=== PATIENT | female | born 1955 | race Caucasian/White ===

== ENCOUNTER 2024-10-03 11:11 | Outpatient (AMB) | payer MEDICARE, SELFPAY ==
[2024-10-03 11:23] VITALS: BP 193/86; PULSE 86; O2SAT 96; BMI 40.6
--- NOTE | 2024-10-03 11:23 | A.OFFVIS_ITS ---
Vital Signs 10/03/24 11:23 Height 5 ft 8 in Weight 267 lb BMI 40.6 BP 193/86 H Blood Pressure Location Lt brachial Position Sitting Pulse 86 Pulse Source Pulse Oximeter Pulse Oximetry (%) 96 Oxygen Delivery Method Room Air Intake Visit Reasons: Back pain Intake Note: Pt ran out of her BP medication, will stop by pharmacy today to corn picker Boring Machine Feeder Required: No Allergies No Known Allergies Allergy (Verified 10/03/24 11:24) Medication List - Last Reconciled 10/03/24 by Alannah Amaro, ENTERPRISE APPLICATIONS MANAGER lisinopril 20 mg PO DAILY HPI Comments Details: The patient is a 69-year-old female presenting with chronic lower back pain. The chronic pain, interlinked with her diagnosis of spinal stenosis, has been complicated by a physical fall in June, leading to a sustained deterioration . 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 Over the years, the patient has had a decrease in functional capacity due to persistent pain and now reports avoidance of medications. Previous exacerbation of symptoms was noted following a June incident with her dog, which caused her to land underneath a vehicle, significantly worsening her back condition. While she has experienced bowel control issues suggesting possible Cauda Equina Syndrome, she has not pursued surgical interventions due to discouraging outcomes shared by others. She is not interested in surgical intervention at this time. The patient has undergone bilateral knee replacements in the past, indicating a surgical history without immediate complications once recovered. - Onset and Timing: Chronic lower back pain for years, escalated since fall - Quality and Character: Constant pressure in the lower back, sometimes intense. - Primary Location: Lower back. - Areas of Radiation: Legs - Exacerbating Factors: Physical activity (yard work, walking) and prolonged standing or sitting. - Relieving Factors: Rest and cessation of activity. - Interference: Significant limitations on daily activities such as yard work, vacuuming, and driving. - Affect: Significant emotional distress, frustration due to limitations on an active lifestyle. - Analgesia: Prefers to avoid medication and manage pain without pharmaceuticals. - Adverse Effects: Not applicable, as the patient is not taking pain medications currently. - Activities of Daily Living: Severe interference; difficulty with vacuuming, yard work, altering linens, and mobility. - Aberrant Drug-Related Behaviors: None reported, patient prefers non- pharmacologic management. [facility] Medical History (Updated 10/03/24 @ 14:17 by Destiny Lin APRN, STEWARD/STEWARDESS NIGHT) Hypertension Surgical History (Updated 10/03/24 @ 14:17 by Destiny Lin APRN, STEWARD/STEWARDESS NIGHT) History of knee replacement Review of Systems Const All systems reviewed & are unremarkable except as noted in HPI and below Physical Exam Vital Signs: Last Vital Signs Pulse 86 10/03/24 11:23 BP 193/86 H 10/03/24 11:23 Pulse Ox 96 10/03/24 11:23 Oxygen Delivery Method Room Air 10/03/24 11:23 BMI result Body Mass Index 40.6 General: awake, alert, oriented. Answers questions appropriately. Fully engaged in examination. Skin: warm, dry, intact HEENT: Normocephalic. Hearing intact. Cardiac: External chest normal in appearance. Respiratory: No cough, audible wheezing or stridor. Abdomen: without gross distension. MS: No obvious swelling or deformities. Maintains slight forward flexed position Able to transition from sit to stand unassisted. Ambulates with bilaterally normal heel strike and toe off SLR negative bilaterally Tender to palpation midline lumbar vertebrae and lumbar paraspinal muscles Nontender over bilateral PSIS Neurological: Oriented to person, place, time and situation. Thought process intact. No gait abnormalities appreciated. Psychiatric: Appropriate mood and affect. Good judgment and insight. Results Reviewed Results Reviewed: 09/10/24 EXAM: MR LUMBAR SPINE WITHOUT CONTRAST FINDINGS: The conus is in its normal position at the level of L1. There are Modic type II reactive degenerative endplate changes present at L5-S1. Throughout the lumbar spine, diffuse degenerative disc changes are present with varying degrees of disc desiccation. T11-12: Mild disc bulging is present. Mild facet osteoarthritic changes are present. The central canal and neural foramen are patent. T12-L1: The central canal and neural foramen are patent. L1-L2: Mild disc bulging is present. Mild facet osteoarthritic changes are present. The central canal and neural foramen are patent. L2-3: Broad-based disc bulging is present. Moderate facet osteoarthritic changes are present. There is hypertrophy and redundancy of both ligamentum flavum with moderate narrowing of the lateral recesses and moderate central canal stenosis. The neural foramen are patent bilaterally. L3-4: Degenerative spondylolisthesis is present. Marked facet osteoarthritic changes are present. There is hypertrophy and redundancy of both ligamentum flavum with severe bilateral lateral recess stenosis and severe central canal stenosis. The neural foramen are patent bilaterally. L4-5: Broad-based disc bulging is present. Moderate facet osteoarthritic changes are present. There is mild narrowing of the lateral recesses and the central canal. The neural foramen are patent bilaterally. L5-S1: Mild disc bulging is present. All facet osteoarthritic changes are present. The central canal and neural foramen are patent. IMPRESSION: Spondylotic findings as discussed above that are most severe at L3-4 where there is severe canal stenosis. Please see discussion above Assessment & Plan Assessment & Plan (1) Spinal stenosis: Code(s): M48.00 - Spinal stenosis, site unspecified Category: Medical (2) Chronic back pain: Code(s): M54.9 - Dorsalgia, unspecified; G89.29 - Other chronic pain Category: Medical (3) Fecal incontinence: Code(s): R15.9 - Full incontinence of feces Category: Medical (4) Lumbar spondylosis: Code(s): M47.816 - Spondylosis without myelopathy or radiculopathy, lumbar region Category: Medical (5) Degenerative disc disease, lumbar: Code(s): M51.369 - Other intervertebral disc degeneration, lumbar region without mention of lumbar back pain or lower extremity pain Category: Medical Plan Today, we addressed the patient's chronic back pain due to spinal stenosis with the new concern of leg numbness. The patient does not currently take pain medication and expresses reluctance towards surgical intervention, though a referral to neurosurgery is planned for consideration of future consultation. We discussed prescribing a muscle relaxant for occasional use, particularly post- activity to help alleviate discomfort. This temporary step aims to ease pain w ithout altering current functional independence significantly. Given her plans to relocate temporarily to [place], adjusting medication plans to her support system is necessary to maintain her independence and quality of life. During our discussion, I explained the gravity of the spinal stenosis using the patient's MRI results highlighting severe central canal and lateral recess stenosis. I advised on a referral to neurosurgery, stressing that consultation does not commit her to surgery. Options for minimally invasive procedures were outlined, explaining that newer methods could provide symptomatic relief with less risk than traditional surgeries. We also discussed using muscle relaxants to help manage acute pain episodes, assuring her that the prescribed medication is minimally sedating to maintain her independence and safety. I asked the patient to inform me upon returning from [place] so that a referral can be placed for neurosurgical evaluation. Patient is agreeable to neurosurgical evaluation. Recommendations were provided towards lifestyle accommodations, reassuring her continued ability to engage actively within her capacity. - Avoid strenuous activities that worsen the back pain. - Consider a muscle relaxant when the pain is severe - Keep the follow-up with neurosurgery for consultation in mind, especially if symptoms worsen. - Upon return from [place], contact us to proceed with any further referrals or evaluations. - Monitor for symptoms of Cauda Equina Syndrome, such as saddle anesthesia or bowel/bladder changes, and seek immediate care if they occur. - Be conscious of maintaining mobility and activity within comfort levels. - Coordinate support for travel and activities as needed. - supervisor specialty plant prescribed muscular relaxant and continue with blood pressure medication as directed. Patient was informed and verbally consented to the use of an ambient scribe for clinic note documentation during this visit. Medications: New methocarbamol No driving while taking this medication. Do no take with alcohol or other STENCIL CUTTER Depressants 500 mg PO TID PRN 90 tabs 1RF muscle spasm Coding Level of Care Code New Pt Level 4 (42711) Complex EM visit Add On G2211 Diagnoses Spinal stenosis M48.00 Chronic back pain M54.9; G89.29 Fecal incontinence R15.9 Lumbar spondylosis M47.816 Degenerative disc disease, lumbar M51.369
--- OUTSIDE RECORDS SUMMARY | 2024-10-03 13:28 | XMS_ITS | Clinical Summary ---
Author Organization [facility] Address [address] [place] [address] Care Team Providers Care Manager Study Name Role Phone Abhijeet Vale MD Primary Care Provider Allergies Active Allergy Reactions Criticality Noted Date Comments Tyloxapol 09/29/2021 Medications Medication Sig Dispensed Refills Start Date End Date Status atenolol (TENORMIN) tablet 50 mg 0 04/15/2017 Active celecoxib (CELEBREX) 200 MG capsule TAKE ONE CAPSULE BY MOUTH ONCE A DAY WITH FOOD 1 01/18/2017 Active warfarin (COUMADIN) 1 MG tablet Take 5 tabs daily or as directed by physician 90 tablet 0 08/02/2017 Active Additional Information Patient not taking.Reason: Other (treatment completed), Reported on 04/25/2018 methocarbamol (ROBAXIN-750) 750 MG tablet Take 1 tablet po q 8 hrs prn spasms 30 tablet 2 08/16/2017 Active atenolol (TENORMIN) tablet 25 mg 0 12/12/2017 Active oxyCODONE (ROXICODONE) 5 MG immediate release tablet Take 5 mg by mouth every 12 (twelve) hours as needed. for pain 0 10/05/2017 Active traMADol (ULTRAM) 50 MG tablet Take 50 mg by mouth every 8 (eight) hours as needed. for pain 2 10/19/2017 Active gabapentin (NEURONTIN) 100 MG capsule Take 1 capsule (100 mg total) by mouth 3 (three) times a day as needed. 90 capsule 2 02/27/2018 Active warfarin (COUMADIN) 1 MG tablet Take 6 tabs daily at dinner time - Dr Vora's office will contact you to change dose as needed 100 tablet 1 05/23/2018 Active Additional Information Patient not taking.Reason: Other, Reported on 07/07/2018 carisoprodol (SOMA) 250 MG tablet TAKE 1 TABLET BY MOUTH TWICE A DAY NEEDED 0 08/14/2020 Active ibuprofen (ADVIL,MOTRIN) 600 MG tablet TAKE 1 TABLET 4 TIMES DAILY FOR 5 DAYS 0 08/14/2020 Active ondansetron (ZOFRAN-ODT) 4 MG disintegrating tablet DISSOLVE 1 TABLET ON THE TONGUE EVERY 8 HOURS NEEDED FOR NAUSEA/VOMITING 0 08/14/2020 Active oxyCODONE-acetaminop hen (PERCOCET) 5-325 MG per tablet TAKE 1 TABLET EVERY 6 HOURS FOR 3 DAYS NEEDED FOR PAIN 0 08/14/2020 Active DULoxetine (CYMBALTA) DR capsule 20 mg Take 20 mg by mouth daily. 0 08/28/2021 Active amoxicillin (AMOXIL) 500 MG tablet Take 4 tabs 1 hour prior to dental appointment 20 tablet 3 09/29/2021 Active Active Problems Problem Noted Date Diagnosed Date Postoperative follow-up 07/07/2018 Knee stiffness, left 09/13/2017 Status post left knee replacement 09/13/2017 Social History Tobacco Use Types Packs/Day Years Used Date Smoking Tobacco: Never Smokeless Tobacco: Never Sex and Gender Information Value Date Recorded Sex Assigned at Not on file Gender Identity Not on file Sexual Orientation Not on file Job Start Date Occupation Industry Not on file Not on file Not on file Last Filed Vital Signs Vital Sign Reading Time Taken Comments Blood Pressure - - Pulse - - Temperature - - Respiratory Rate - - Oxygen Saturation - - Inhaled Oxygen Concentration - - Weight 120.2 kg (265 lb) 09/29/2021 9:02 AM EDT Height 172.7 cm (5' 8 ) 09/30/2021 9:35 AM EDT Body Mass Index 40.29 09/29/2021 9:02 AM EDT Plan of Treatment Health Maintenance Due Date Last Done Comments Hepatitis C Screening 1955 COVID-19 Vaccine (#1) 1955 Depression Screening 1967 BMI Counseling 1973 Preventative Health Evaluation 1973 DTap / Tdap / Td (1 - Tdap) 1974 Colon Cancer Screening (Colonoscopy) 2000 Breast Cancer Screening (Mammogram) 2005 Shingrix-Zoster Vaccine (1 of 2) 2005 Fall Risk Assessment 2020 Osteoporosis Screening (DEXA Scan) 2020 Pneumococcal Vaccine (1 of 1 - PCV) 2020 Influenza Vaccine (#1) 2024 RSV Adult > 60+ Yrs or Pregn ant (1 - 1-dose 75+ series) 2030 Hepatitis B Vaccines Aged Out No long er eligible based on patient's age to complete this topic RSV Ped < 20 months Aged Out No longe r eligible based on patient's age to complete this topic Care Teams Manager Study Relationship Specialty Start Date End Date Ahbijeet Vale MD [address] [address] PCP - General Polisher Dial 09/30/21
--- OUTSIDE RECORDS SUMMARY | 2024-10-03 13:28 | XMS_ITS | Clinical Summary ---
Author Organization [facility] Address [id number] [place] [id number] Care Team Providers Care Marriage And Family Counselor Name Role Phone Abhijeet Vale MD Primary Care Provider [phone] Surgical History Surgery Date Site/Laterality Comments SHOULDER SURGERY PROCEDURE:SHOULDER SURGERY JOINT REPLACEMENT PROCEDURE:JOINT REPLACEMENT Medical History Medical History Date Comments Hypertension DX:Hypertension Social History Tobacco Use Types Packs/Day Years Used Date Smoking Tobacco: Never Smokeless Tobacco: Never Comments Unknown Sex and Gender Information Value Date Recorded Sex Assigned at Not on file Legal Sex Female 7:44 PM EST Gender Identity Not on file Sexual Orientation Not on file Obstetrics History Last Filed Vital Signs Vital Sign Reading Time Taken Comments Blood Pressure - - Pulse - - Temperature - - Respiratory Rate - - Oxygen Saturation - - Inhaled Oxygen Concentration - - Weight 120 kg (265 lb) 09/29/2021 9:02 AM EDT Height 172.7 cm (5' 8 ) 09/30/2021 9:35 AM EDT Body Mass Index 40.29 09/29/2021 9:02 AM EDT Plan of Treatment Health Maintenance Due Date Last Done Comments Breast Cancer Screening 1955 DTaP,Tdap,and Td Vaccines (1 - Tdap) 1974 Pneumococcal Vaccine: 50+ Ye ars (1 of 1 - PCV) 2005 Zoster Vaccines (1 of 2) 2005 Colorectal Cancer Screening: Colonoscopy 06/12/2022 Depression Screening 06/12/2022 Falls Risk Assessment 06/12/2022 Hepatitis C Screening 06/12/2022 Osteoporosis Screening (Bone Density Screening) 06/12/2022 Social Influencers of Health Screening 06/12/2022 COVID-19 Vaccine ( - 2023-2 5 season) 2024 Influenza Vaccine (#1) 2024 RSV Immunization Patients 60 + Years Old (1 - 1-dose 75+ series) 2030 HIB Vaccines Aged Out No longer eligi ble based on patient's age to complete this topic HPV Vaccines Aged Out No longer eligi ble based on patient's age to complete this topic Hepatitis A Vaccines Aged Out No long er eligible based on patient's age to complete this topic Hepatitis B Vaccines Aged Out No long er eligible based on patient's age to complete this topic IPV Vaccines Aged Out No longer eligi ble based on patient's age to complete this topic MMR Vaccines Aged Out No longer eligi ble based on patient's age to complete this topic Meningococcal ACWY Vaccine Aged Out N o longer eligible based on patient's age to complete this topic Meningococcal B Vacine Aged Out No lo nger eligible based on patient's age to complete this topic RSV Immunization Patients Un andrzej 20 months Aged Out No longer eligible b ased on patient's age to complete this topic Varicella Vaccines Aged Out No longer eligible based on patient's age to complete this topic Care Teams Marriage And Family Counselor Relationship Specialty Start Date End Date Abhijeet Vale MD [address] PCP - General Cardiopulmonary Technologist Chief 09/30/21
== END 2024-10-03 12:29 | disposition home or self-care (01) ==
LOC: HO.PMC 11:12
PROVIDERS: PCP Internal Medicine; Referring Provider Physician Assistant Medical; Visit Provider Registered Nurse Emergency
DX: M48.00 Spinal stenosis, site unspecified (principal); M54.9 Dorsalgia, unspecified; G89.29 Other chronic pain; R15.9 Full incontinence of feces; M47.816 Spondylosis without myelopathy or radiculopathy, lumbar region; M51.369 Other intervertebral disc degeneration, lumbar region without mention of lumbar back pain or lower extremity pain
CPT/HCPCS: 99204; G2211

== ENCOUNTER → 2024-10-03 11:11 | Outpatient (BNVA) | payer MEDICARE, SELFPAY | PROVIDERS: PCP Internal Medicine; Referring Provider Physician Assistant Medical; Visit Provider Registered Nurse Emergency | DX: M48.00 Spinal stenosis, site unspecified (principal); M54.9 Dorsalgia, unspecified; M47.816 Spondylosis without myelopathy or radiculopathy, lumbar region; M51.369 Other intervertebral disc degeneration, lumbar region without mention of lumbar back pain or lower extremity pain; G89.29 Other chronic pain | CPT/HCPCS: 99202 ==

== ENCOUNTER 2024-11-02 13:52 | Outpatient (AMB) | payer MEDICARE, SELFPAY ==
[2024-11-02 14:15] VITALS: BP 126/78; PULSE 93; O2SAT 98; BMI 40.0
--- NOTE | 2024-11-02 14:15 | MHC.OFFVIS ---
Vital Signs 11/02/24 14:15 Height 5 ft 8 in Weight 263 lb BMI 40.0 BP 126/78 Pulse 93 Pulse Source Pulse Oximeter Pulse Oximetry (%) 98 Oxygen Delivery Method Room Air Intake Visit Reasons: cough Religious Education Director Required: No Custom Furrier: Custom Furrier offered & declined Accompanied by: Self / Same As Patient Allergies No Known Allergies Allergy (Verified 11/02/24 14:17) Medication List - Last Reconciled 11/02/24 by Adry Davies LPN lisinopril 20 mg PO DAILY methocarbamol 500 mg PO TID PRN HPI HPI cough: Details: Monika is a pleasant 69-year-old female, former 10 pack year smoker, quit 1988 with underlying hypertension.She was referred by PCP for pulmonary evaluation. She reports chronic cough since the fall after sustaining a fall, occasionally productive, with intermittent dyspnea on exertion and wheezing. She denies fevers, chills or other symptoms suggestive of infectious process. She notes the cough worsens when she lays down. She denies any symptoms of reflux. She does report significant changes in activity level due to back pain as well as weight gain which may be contributing to dyspnea. PCP sent for chest CT at [facility] which was unremarkable. She denies prior history of asthma however years ago was on daily inhalers for a period of time. She denies seasonal allergies. She denies history of recurrent respiratory infections, however did note history of pleurisy in the 1980s on 2 occasions.. She denies any occupational exposures. She reports mother with history of COPD, otherwise no other pertinent family history. [facility] Medical History (Updated 11/04/24 @ 13:11 by Rupal Aldana NP) Hypertension Surgical History (Updated 10/03/24 @ 14:17 by Destiny Lin APRN, INVESTIGATION DIVISION [employer]IEUTENANT) History of knee replacement Social History (Updated 11/02/24 @ 14:18 by Adry Davies LPN) Patient Tobacco Use Status: Former Tobacco user Tobacco use type: Cigarette Cigarette Packs Per Day: 0.5 Years Smoked: 20 Review of Systems Const Denies chills, Denies excessive sweating, Denies fever(s), Denies headache(s) and Denies night sweats Eyes Denies dry eyes, Denies irritation and Denies itchy eyes ENT Reports Normal hearing present, Denies headache(s), Denies nasal congestion, Denies nasal discharge, Denies post nasal drip and Denies sore throat Card Denies chest pain, Denies chest pain at rest, Denies chest pain with activity, Denies claudication, Denies leg edema, Denies orthopnea and Denies paroxysmal nocturnal dyspnea Resp Denies chest congestion, Denies excessive phlegm production, Denies pain on inspiration, Denies pain with cough, Denies stridor and Denies wheezing Musc Denies myalgias Neuro Reports Normal hearing present and Denies headache(s) Endo Denies excessive sweating Jong/Lymph Denies lymphadenopathy Aller/Immun Denies itchy eyes, Denies seasonal rhinorrhea and Denies wheezing Physical Exam Vital Signs: Last Vital Signs Pulse 93 11/02/24 14:15 BP 126/78 11/02/24 14:15 Pulse Ox 98 11/02/24 14:15 Oxygen Delivery Method Room Air 11/02/24 14:15 BMI result Body Mass Index 40.0 Const General: cooperative, healthy appearing, comfortable, no acute distress, well developed and alert Nutritional Appearance: obese Orientation/consciousness: patient oriented x3 Limitations: no limitations HEENT Head: Yes normal to inspection, Yes normocephalic and Yes atraumatic Ears: hearing grossly normal bilaterally and external ears normal Eyes General: appearance normal, both eyes and all related structures Eyelids: Yes eyelids normal Sclerae: sclerae normal EOM: EOMs intact bilaterally Neck Neck: Yes normal visual inspection and Yes no lymphadenopathy Lymphatic: no lymphadenopathy noted Chest Chest palpation & inspection: normal inspection of the chest Resp Effort & Inspection: normal respiratory effort, able to speak in complete sentences, no audible wheezes, no cough, no stridor, not tachypneic, no tripod positioning and no use of accessory muscles Auscultation: clear to auscultation bilaterally Cardio Jugular venous distension: no JVD Rate: regular rate Rhythm: regular rhythm Skin Other: warm, dry General skin exam: no rashes or lesions noted Neuro General: patient oriented x3 Cranial nerves: Yes Normal hearing present Cognition (Neuro): normal cognition Gait exam (Neuro): Normal gait present Extrem General: Yes normal to inspection, Yes capillary refill normal, Yes no clubbing, cyanosis or edema and Yes no pedal edema Psych Appearance: grossly normal and well kempt Speech and movement: Normal speech and movement present and Clear speech present Affect: normal affect Attitude: cooperative Thought process: Normal thought process present Thought content: Normal thought content present Insight: Good insight present (Psych) Judgement: Good judgement present (Psych) Results Reviewed Results Reviewed: PROCEDURE: CT CHEST without CONTRAST INDICATION: Cough since June 2024. Former smoker. Additional History: Asthma. Hypertension. TECHNIQUE: CT of the chest was performed without contrast. Automated mA/kV exposure control was utilized and patient examination was performed in strict accordance with principles of ALARA. RADIATION AMOUNT: 594.50 mGy-cm. COMPARISON: None Available. FINDINGS: The heart is normal in size without pericardial effusion. Coronary artery calcifications are not identified. Thoracic lymph nodes are not enlarged. There is no pleural effusion, pleural thickening, or pneumothorax. The airways are patent. Lungs are clear without consolidation, interstitial disease, or suspicious nodules. Upper abdomen demonstrates no acute pathology. There are no acute fractures. No suspicious bony lesions. IMPRESSION: No acute lung parenchymal abnormalities. Lennox Luke MD Signed by Lennox Luke MD Electronically signed on 09/11/2024 8:59:00 AM by Lennox Luke MD Assessment & Plan Assessment & Plan (1) Chronic cough: Code(s): R05.3 - Chronic cough Category: Medical (2) Dyspnea on exertion: Code(s): R06.09 - Other forms of dyspnea Category: Medical Plan Monika presents for pulmonary evaluation for chronic cough that has been present since the fall, essentially unchanged. Review chest CT which was unremarkable. Will send for PFT to assess for obstructive defect, requesting Levalbuterol to be used with testing. All questions were answered and patient is in agreement of plan. Will follow-up to review results her sooner if needed. Orders: Orders PFT pulmonary function test Today R05.3 - Chronic cough Coding Level of Care Code New Pt Level 4 (33854) Diagnoses Chronic cough R05.3 Dyspnea on exertion R06.09
--- OUTSIDE RECORDS SUMMARY | 2024-11-02 14:37 | XMS_ITS | Clinical Summary ---
Author Organization [facility] it[facility] Address [address] [place] [id number] Care Team Providers Care Slate Mixer Name Role Phone Abhijeet Vale MD Primary Care Provider [phone] Surgical History Surgery Date Site/Laterality Comments SHOULDER [...] - 2023-2 5 season) 2024 Influenza Vaccine (Season Ended) 2025 RSV Immunization Adult Patie nts (1 - 1-dose 75+ series) 2030 HIB [...] age to complete this topic Meningococcal B Vaccine Aged Out No l onger eligible based on patient's age to complete this topic RSV Immunization Patients Un andrzej 20 months Aged Out No longer eligible b ased on patient's age to complete this topic Varicella Vaccines Aged Out No longer eligible based on patient's age to complete this topic Care Teams Slate Mixer Relationship Specialty Start Date End Date Abhijeet Vale MD [address] PCP - General Protection Chief Industrial Plant 09/30/21
--- OUTSIDE RECORDS SUMMARY | 2024-11-02 14:37 | XMS_ITS | Clinical Summary ---
Author Organization [facility] Address [address] [place] [address] Care Team Providers Care Mobile Application Tester Name Role Phone Abhijeet Vale MD Primary Care Provider [phone] Allergies Active Allergy Reactions Criticality Noted Date [...] age to complete this topic Care Teams Mobile Application Tester Relationship Specialty Start Date End Date Abhijeet Vale MD [address] [address] PCP - General Director Of Partner Marketing 09/30/21
== END 2024-11-02 14:57 | disposition home or self-care (01) ==
LOC: HO.HPSW 13:53
PROVIDERS: PCP Internal Medicine; Visit Provider Nurse Practitioner Family
DX: R05.3 Chronic cough (principal); R06.09 Other forms of dyspnea
CPT/HCPCS: 99204

== ENCOUNTER → 2024-11-02 13:52 | Outpatient (BNVA) | payer MEDICARE, SELFPAY | PROVIDERS: PCP Internal Medicine; Visit Provider Nurse Practitioner Family | DX: R05.3 Chronic cough (principal); R06.09 Other forms of dyspnea; I10 Essential (primary) hypertension | CPT/HCPCS: 99202 ==

== ENCOUNTER 2025-03-14 12:35 | Outpatient (REF) | payer MEDICARE, SELFPAY ==
--- NOTE | 2025-03-14 12:39 | PFT_ITS ---
Flows: FEV1: 73 % of predicted at 1.83 L FVC: 73 % of predicted at 2.38 L FEV1/FVC: 77 % Bronchodilator response: Absent Volumes: Total lung capacity: 72 % of predicted at 4.12 L Residual volume: 72 % of predicted at 1.61 L Slow vital capacity: 73 % of predicted at 2.50 L Expiratory reserve volume: 0 % of predicted at 0 L Diffusion capacity: Normal Impression: Moderate restrictive ventilatory defect with no bronchodilator response. Decreased expiratory reserve volume suggests extrathoracic restriction likely secondary to abdominal obesity. MTDD
[2025-03-14 13:29] VITALS: PULSE 80; O2SAT 97
--- OUTSIDE RECORDS SUMMARY | 2025-03-14 13:50 | XMS_ITS | Clinical Summary ---
Author Organization [facility] Address [address] [place] [address] Phone Care Team Providers Care Generator Mechanic Name Role Phone Abhijeet Vale MD Primary Care Provider [phone] Allergies Active Allergy Reactions Criticality Noted Date Comments Tyloxapol 09/29/2021 Medications lisinopriL (PRINIVIL,ZESTRI L) 20 mg tablet Take 1 tablet (20 mg total) by mouth 1 (one) time each day. 12/29/2024 Active Active Problems Problem Noted Date Diagnosed Date Knee stiffness, left 09/13/2017 Status post left knee replacement 09/13/2017 Encounters Date Type Department Care Team Description 01/03/2025 Telephone Gastroenterology - [address] [place] [phone] Lennox Osullivan MD from Last 3 Months Surgical History Surgery Date Site/Laterality Comments SHOULDER SURGERY PROCEDURE:SHOULDER SURGERY JOINT REPLACEMENT PROCEDURE:JOINT REPLACEMENT Medical History Medical History Date Comments Hypertension DX:Hypertension Social History Tobacco Use Types Packs/Day Years Used Date Smoking Tobacco: Never Smokeless Tobacco: Never Comments Unknown Sex and Gender Information Value Date Recorded Sex Assigned at Female 02/27/2025 11:46 AM EDT Legal Sex Female 7:44 PM EST Gender Identity Female 02/27/2025 11:46 AM EDT Sexual Orientation Straight 02/27/2025 11 :46 AM EDT Obstetrics History Last Filed Vital Signs Vital [...] 09/29/2021 9:02 AM EDT Plan of Treatment Upcoming Encounters Date Type Department Care Team (Late st Contact Info) Description 04/17/2025 12:00 PM EDT Appointment [facility] Endoscopy [address] [place] [address] Alana Edmonds MD [address] [place] [phone] 05/14/2025 11:15 AM EST Appointment [facility] Ultrasound [address] [place] [phone] Health Maintenance Due Date Last Done Comments Breast Cancer Screening 1955 DTaP,Tdap,and Td Vaccines (1 - Tdap) 1974 Pneumococcal Vaccine: 50+ Ye ars (1 of 1 - PCV) 2005 Zoster Vaccines (1 of 2) 2005 COVID-19 Vaccine ( - 2023-2 5 season) 2024 Depression Screening 07/11/2024 Cholesterol Screening (Lipid Panel) 01/04/2025 Colorectal Cancer Screening: Colonoscopy 01/04/2025 Falls Risk Assessment 01/04/2025 Hepatitis C Screening 01/04/2025 Medicare Annual Wellness Visit 01/04/2025 Osteoporosis Screening (Bone Density Screening) 01/04/2025 Social Influencers of Health Screening 01/04/2025 Hypertension/CHF/CAD Annual BMP Blood Test 01/09/2025 Influenza Vaccine (#1) 2025 RSV Immunization Adult Patie nts (1 [...] on patient's age to complete this topic Insurance [employer] MEDICARE Care Teams Generator Mechanic Relationship Specialty Start Date End Date Abhijeet Vale MD [address] [place] [address] PCP - General Air Bag Buffer 09/30/21
--- OUTSIDE RECORDS SUMMARY | 2025-03-14 13:50 | XMS_ITS | Clinical Summary ---
Author Organization [facility] Address [address] [place] [address] Care Team Providers Care Dairy Manufacturing Technologist Name Role Phone Abhijeet Vale MD Primary Care Provider [phone] Allergies Active Allergy Reactions Criticality Noted Date [...] 1 - PCV) 2020 Influenza Vaccine (#1) 2025 RSV Adult > 60+ Yrs or Pregn ant (1 - 1-dose 75+ series) 2030 Hepatitis B Vaccines Aged Out No long er eligible based on patient's age to complete this topic RSV Ped < 20 months Aged Out No longe r eligible based on patient's age to complete this topic Care Teams Dairy Manufacturing Technologist Relationship Specialty Start Date End Date Abhijeet Vale MD [address] [address] PCP - General Registrar Nurses' Registry 09/30/21
== END 2025-03-14 12:36 | disposition home or self-care (01) ==
LOC: HO.RESP 12:35
PROVIDERS: PCP Internal Medicine; Visit Provider Nurse Practitioner Family
DX: R06.09 Other forms of dyspnea (principal); Z87.891 Personal history of nicotine dependence
CPT/HCPCS: 94010; 94640; 94727; 94729

== ENCOUNTER → 2025-03-14 12:39 | Outpatient (BNV) | payer MEDICARE, SELFPAY | PROVIDERS: PCP Internal Medicine; Visit Provider Internal Medicine Pulmonary Disease | DX: J98.4 Other disorders of lung (principal) | CPT/HCPCS: 94060; 94727; 94729 ==

== ENCOUNTER 2025-04-05 10:55 | Outpatient (AMB) | payer MEDICARE, SELFPAY ==
--- NOTE | 2025-04-05 11:12 | A.OFFVIS_ITS ---
Vital Signs 04/05/25 11:13 Height 5 ft 8 in Weight 261 lb 6 oz BMI 39.7 BP 142/86 H Blood Pressure Location Lt brachial Position Sitting Pulse 66 Pulse Source Pulse Oximeter Pulse Oximetry (%) 97 Oxygen Delivery Method Room Air Intake Visit Reasons: Cough/ PFT FU Allergies No Known Allergies Allergy (Verified 04/05/25 11:15) HPI HPI Cough/ PFT FU: Details: Monika is a pleasant 69-year-old female, former 10 pack year smoker, quit 1988 with underlying hypertension and asthma. She continues with a cough which she describes as dry and persistent, leading to a sore throat, and has been ongoing for 6+ months. She reports being active during the day but experiences a raspy sensation and congestion upon taking a breath, which triggers the cough. The patient has a history of pleurisy, which occurred twice in the , potentially contributing to some lung scarring. She also has a history of asthma, which she did not mention previously, with prior use of inhalers during the late , although she denies any recent history of asthma. Additionally, she has a history of spinal cord disease, which required prolonged steroid use for approximately 4 years, which she had discontinued about one year ago. Today she presents to review PFT results. The patient underwent pulmonary function t ests, which showed a 4% improvement with albuterol and a 10% improvement in smaller airways, indicating some response to bronchodilators. Her oxygen utilization was normal, but there was some restriction in lung expansion, likely due to excess abdominal tissue. She denies any visits to urgent care hospitalizations related to respiratory distress since last visit. [facility] Medical History (Updated 04/06/25 @ 12:47 by Rupal Aldana NP) Hypertension Surgical History (Updated 10/03/24 @ 14:17 by Destiny Lin APRN, FINISHED CLOTH CHECKER) History of knee replacement Social History Patient Tobacco Use Status: Former Tobacco user Tobacco use type: Cigarette Cigarette Packs Per Day: 0.5 Years Smoked: 20 Review of Systems Const Denies chills, Denies excessive sweating, Denies fever(s), Denies headache(s) and Denies night sweats Eyes Denies dry eyes, Denies irritation and Denies itchy eyes ENT Reports Normal hearing present, Denies headache(s), Denies nasal congestion, Denies nasal discharge, Denies post nasal drip and Denies sore throat Card Denies chest pain, Denies chest pain at rest, Denies chest pain with activity, Denies claudication, Denies leg edema, Denies orthopnea and Denies paroxysmal nocturnal dyspnea Resp Denies chest congestion, Denies excessive phlegm production, Denies pain on i nspiration, Denies pain with cough, Denies stridor and Denies wheezing Musc Denies myalgias Neuro Reports Normal hearing present and Denies headache(s) Endo Denies excessive sweating Jong/Lymph Denies lymphadenopathy Aller/Immun Denies itchy eyes, Denies seasonal rhinorrhea and Denies wheezing Physical Exam Vital Signs: Last Vital Signs Pulse 66 04/05/25 11:13 BP 142/86 H 04/05/25 11:13 Pulse Ox 97 04/05/25 11:13 Oxygen Delivery Method Room Air 04/05/25 11:13 BMI result Body Mass Index 39.7 Const General: cooperative, healthy appearing, comfortable, no acute distress, well developed and alert Nutritional Appearance: obese Orientation/consciousness: patient oriented x3 Limitations: no limitations HEENT Head: Yes normal to inspection, Yes normocephalic and Yes atraumatic Ears: hearing grossly normal bilaterally and external ears normal Eyes General: appearance normal, both eyes and all related structures Eyelids: Yes eyelids normal Sclerae: sclerae normal EOM: EOMs intact bilaterally Neck Neck: Yes normal visual inspection and Yes no lymphadenopathy Lymphatic: no lymphadenopathy noted Chest Chest palpation & inspection: normal inspection of the chest Resp Effort & Inspection: normal respiratory effort, able to speak in complete sentences, no audible wheezes, no cough, no stridor, not tachypneic, no tripod positioning and no use of accessory muscles Auscultation: clear to auscultation bilaterally Cardio Jugular venous distension: no JVD Rate: regular rate Rhythm: regular rhythm Skin Other: warm, dry General skin exam: no rashes or lesions noted Neuro General: patient oriented x3 Cranial nerves: Yes Normal hearing present Cognition (Neuro): normal cognition Gait exam (Neuro): Normal gait present Extrem General: Yes normal to inspection, Yes capillary refill normal, Yes no clubbing, cyanosis or edema and Yes no pedal edema Psych Appearance: grossly normal and well kempt Speech and movement: Normal speech and movement present and Clear speech present Affect: normal affect Attitude: cooperative Thought process: Normal thought process present Thought content: Normal thought content present Insight: Good insight present (Psych) Judgement: Good judgement present (Psych) Results Reviewed Results Reviewed: Moderate restrictive ventilatory defect with no bronchodilator response, 10% improvement in small to medium airways. Decreased expiratory reserve volume suggests extrathoracic restriction likely secondary to abdominal obesity. Assessment & Plan Assessment & Plan (1) Asthma: Code(s): J45.909 - Unspecified asthma, uncomplicated Category: Medical (2) Chronic cough: Code(s): R05.3 - Chronic cough Category: Medical Plan The patient will be started on an inhaler containing a steroid and long-acting albuterol to manage asthma. The inhaler is to be used once daily, and the patient is advised to rinse her mouth after use to prevent oral thrush. Obesity is noted as a contributing factor to respiratory restriction, and weight management strategies should be considered. Will also send for allergy testing to assess for an allergic component. All questions were answered and patient is in agreement of plan. Will follow-up in 6-8 weeks or sooner if needed. Orders: Orders Complete Blood Count Auto Diff 04/05/25 Z91.09 - Other allergy status, other than to drugs and biological substances Other Ref Test - Misc 04/05/25 Z91.09 - Other allergy status, other than to drugs and biological substances Immunoglobulin E 04/05/25 Z91.09 - Other allergy status, other than to drugs and biological substances Resp Allergy Profile Region I 04/05/25 Z91.09 - Other allergy status, other than to drugs and biological substances Medications: New fluticasone furoate-vilanterol 100-25 mcg/dose (Breo Ellipta) 1 inh inhalation DAILY 60 ea 3RF Coding Level of Care Code Est Pt Level 4 (74660) Diagnoses Asthma J45.909 Chronic cough R05.3
[2025-04-05 11:13] VITALS: BP 142/86; PULSE 66; O2SAT 97; BMI 39.7
--- OUTSIDE RECORDS SUMMARY | 2025-04-05 12:41 | XMS_ITS | Clinical Summary ---
Author Organization [facility] Address [address] [place] [address] Care Team Providers Care [employer] Compliance Internship Name Role Phone Abhijeet Vale MD Primary Care Provider [phone] Allergies Active Allergy Reactions Criticality Noted Date [...] age to complete this topic Care Teams [employer] Compliance [employer]ship Relationship Specialty Start Date End Date Abhijeet Vale MD [address] [address] PCP - General Marine Electrician 09/30/21
--- OUTSIDE RECORDS SUMMARY | 2025-04-05 12:42 | XMS_ITS | Clinical Summary ---
Author Organization [facility] Address [address] [place] [address] Phone Care Team Providers Care Cook House Supervisor Name Role Phone Abhijeet Vale MD Primary Care Provider [phone] Allergies Active Allergy Reactions Criticality Noted Date Comments Tyloxapol 09/29/2021 Medications lisinopriL (PRINIVIL,ZESTR IL) 20 mg tablet Take 1 tablet (20 mg total) by mouth 1 (one) time each day. 12/29/2024 Active polyethylene glycol-electrol ytes (MoviPrep) solution Drink 8 oz every 10-15 minutes until solution is gone 1 each 04/03/2025 Active Active Problems Problem Noted Date Diagnosed Date Knee stiffness, left 09/13/2017 Status post left knee replacement 09/13/2017 Encounters Date Type Department Care Team Description 01/03/2025 Telephone Gastroenterology - [address] [place] [phone] Lennox Osullivan MD from Last 3 [...] Info) Description 04/17/2025 12:00 PM EDT Appointment [facility] Endoscopy [address] [place] [phone] Alana Edmonds MD [address] [address] 05/14/2025 11:15 AM EST Appointment [facility] Ultrasound [address] [place] [address] Health Maintenance Due Date Last Done Comments Breast Cancer Screening 1955 DTaP,Tdap,and Td Vaccines (1 - Tdap) 1974 Pneumococcal Vaccine: 50+ Ye ars (1 of 1 - PCV) 2005 Zoster Vaccines (1 of 2) 2005 Depression Screening 07/11/2024 Cholesterol Screening (Lipid Panel) 01/04/2025 Colorectal Cancer Screening: Colonoscopy 01/04/2025 Falls Risk Assessment 01/04/2025 Hepatitis C Screening 01/04/2025 Medicare Annual Wellness Visit 01/04/2025 Osteoporosis Screening (Bone Density Screening) 01/04/2025 Social Influencers of Health Screening 01/04/2025 Hypertension/CHF/CAD Annual BMP Blood Test 01/09/2025 COVID-19 Vaccine (1 - 2023-2 5 season) 2025 Influenza Vaccine (#1) 2025 RSV Immunization Adult [...] topic Insurance [employer] MEDICARE Care Teams Cook House Supervisor Relationship Specialty Start Date End Date Abhijeet Vale MD [address] [place] [address] PCP - General Pipe Line Inspector 09/30/21
== END 2025-04-05 12:03 | disposition home or self-care (01) ==
LOC: HO.HPSW 10:56
PROVIDERS: PCP Internal Medicine; Visit Provider Nurse Practitioner Family
DX: J45.909 Unspecified asthma, uncomplicated (principal); R05.3 Chronic cough
CPT/HCPCS: 99214

== ENCOUNTER → 2025-04-05 10:55 | Outpatient (BNVA) | payer MEDICARE, SELFPAY | PROVIDERS: PCP Internal Medicine; Visit Provider Nurse Practitioner Family | DX: R05.3 Chronic cough (principal); J45.909 Unspecified asthma, uncomplicated; Z91.09 Other allergy status, other than to drugs and biological substances | CPT/HCPCS: 99212 ==